=== PATIENT | female | born 1960 | race Caucasian/White ===

== ENCOUNTER 2020-04-19 08:14 | Outpatient (REF) | payer BC, SELFPAY ==
--- NOTE | 2020-04-19 15:03 | MHC.AU.P13 ---
Adult Audiological Evaluation Date of Visit: 04/19/20 Reason for Appointment: Audiological evaluation due to concern for decreased hearing in her left ear. Ms. Unger reports that she has tinnitus in the left ear as well, which she first noticed years ago. She denies any concerns for her right ear. 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 Medication List: Daily vitamin, Calcium + D3 2x daily D3-400iu Syed. 600 mg, ibuprofen and acetaminophen as needed. Otoscopy: Right Ear: Unremarkable Left Ear: Unremarkable Tympanometry: Tympanometry performed due to: Conductive component found in audiometric results Right Ear: Normal Middle Ear System (Type A) Left Ear: Normal Middle Ear System (Type A) Hearing Evaluation: Transducer(s) Used: Insert Earphones, Bone Conduction Method: Conventional Audiometry Stimuli Used: Pure Tones Right Ear: Description of Hearing: Normal hearing from 250-8000 Hz. Left Ear: Description of Hearing: Moderate conductive hearing loss from 250-1000 Hz, rising to a mild conductive hearing loss from 7958-8558 Hz. Speech Recognition Threshold (SRT): Method Used: Monitored Live Voice Stimuli Used: Spondee Words Right Ear: 10 dBHL Left Ear: 35 dBHL Word Discrimination: Method: Recorded Lists Word Lists Used: NU-6 Right Ear: 96% at 50 dBHL Left Ear: 96% at 75 dBHL Recommendations: Audiological re-evaluation in one year. Referral to Ear, Nose, and Throat is recommended. If hearing loss persists, recommend hearing aid use in the left ear. Diagnosis: Primary Diagnosis: H90.12 ConductiveHL, Unilateral Left Ear, W/Unrestricted Contralateral Services Performed: Services Performed: Comprehensive Audiological Evaluation (CPT 90376) Tympanometry (CPT 54806) Signature: Provider: Florencio Angel, CCC-A
== END 2020-04-19 08:15 | disposition home or self-care (01) ==
LOC: HO.SH 08:14
PROVIDERS: Visit Provider Pediatrics
DX: H90.2 Conductive hearing loss, unspecified (principal)
CPT/HCPCS: 92557; 92567

== ENCOUNTER → 2022-08-06 10:17 | Outpatient (BNVA) | payer BC, SELFPAY | PROVIDERS: Visit Provider Physician Assistant ==

== ENCOUNTER 2022-09-04 08:30 | Outpatient (REF) | payer BC, SELFPAY ==
[2022-09-04 11:20] LABS: MANUAL DIFF FLAG NO
[2022-09-04 11:23] LABS: Basophils Percent Auto 0.9 % (0-2); Eosinophils Absolute Auto 0.1 X10*3/uL (0.0-0.4); Eosinophils Percent Auto 1.9 % (0-4); Hematocrit 44.3 % (37.0-47.0); Hemoglobin 14.4 g/dl (12.0-16.0); Lymphocytes Absolute Auto 1.1 X10*3/uL (1.2-4.9); Mean Corpuscular HGB Conc 32.5 g/dl (31.0-35.0); Mean Corpuscular Hemoglobin 29.9 pg (27.0-33.0); Mean Corpuscular Volume 92.1 fL (80.0-98.0); Mean Platelet Volume 10.4 fL (9.4-12.3); Monocytes Absolute Auto 0.4 X10*3/uL (0.1-1.2); Monocytes Percent Auto 8.1 % (2-11); Neutrophils Absolute Auto 3.1 x10*3/uL (2.0-8.3); Neutrophils Percent Auto 65.1 % (45-73); Platelet Count 261 X10*3/uL (160-400); Red Blood Count 4.81 X10*6/uL (4.20-5.50); Red Cell Distribution Width 13.2 % (11.0-16.0); White Blood Count 4.7 X10*3/uL (4.8-10.8)
[2022-09-04 12:01] LABS: Erythrocyte Sedimentation Rate 18 MM/HR (0-20)
[2022-09-04 12:15] LABS: C Reactive Protein 0.25 mg/dL (< or = 0.50)
[2022-09-04 12:34] LABS: Thyroid Stimulating Hormone 0.97 uIU/mL (0.32-4.0)
== END 2022-09-04 08:31 | disposition home or self-care (01) ==
LOC: HO.WFDLDS 08:30
PROVIDERS: Visit Provider Physician Assistant
DX: K52.9 Noninfective gastroenteritis and colitis, unspecified (principal); R19.8 Other specified symptoms and signs involving the digestive system and abdomen
CPT/HCPCS: 36415; 84443; 85025; 85652; 86140

== ENCOUNTER 2022-09-10 09:28 | Outpatient (AMB) | payer BC, SELFPAY ==
--- NOTE | 2022-09-10 09:35 | MHC.OFFVIS ---
Intake Vital Signs 09/10/22 09:41 Height 5 ft 1 in Weight 137 lb BMI 25.9 BP 138/76 Blood Pressure Location Lt brachial Position Sitting Pulse 76 Intake Visit Reasons: discuss symptoms- Pt request Intake Note: Patient follow up Patient cc: some nauseas on and off, abdominal cramping come and go, and soft stool. Patient will discuss with provider her other symptoms. 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 Has taken Imodium in the past unsure of its benefit She admits that she is under a lot of stress- Began weight watchers Joined wt watchers-she is a very busy person- has her mthr in her home- who is ill- lives in her home [place]- in April- She has no fever, chills hematemesis or hematochezia Scheduled for 10/22/22- EGD/ colonoscopy , PFSH Surgical History History of breast lift History of endometrial ablation Hx of abdominoplasty Hx of colonoscopy Hx of foot surgery Hx of hysterectomy Hx of mammogram Family History Mother Breast CA Depression HTN (hypertension) Father Aortic dissection Family hx of prostate cancer Glaucoma HTN (hypertension) ETOH abuse Brother Family hx of prostate cancer HTN (hypertension) Seizure disorder Paternal Grandmother Breast CA Colon cancer Paternal Aunt Breast CA Social History Household Members: Spouse and Family Alcohol intake: current Patient Tobacco Use Status: Former Tobacco user Review of Systems Const All systems reviewed & are unremarkable except as noted in HPI and below Denies chills and Denies fever(s) Card Denies chest pain and Denies dyspnea Resp Denies dyspnea GI Denies hematochezia and Reports change in bowel habits Physical Exam Vital Signs: Last Vital Signs Pulse 76 09/10/22 09:41 BP 138/76 09/10/22 09:41 BMI result Body Mass Index 25.9 Const General: cooperative, healthy appearing, comfortable, no acute distress, anxious and well groomed Orientation/consciousness: patient oriented x3 Limitations: no limitations Resp Effort & Inspection: normal respiratory effort and able to speak in complete sentences Skin General skin exam: no rashes or lesions noted Neuro General: patient oriented x3 Extrem General: Yes full ROM Psych Appearance: grossly normal and well kempt Mental Status: mental status grossly normal Speech and movement: Normal speech and movement present Affect: Anxious affect present Attitude: cooperative Thought content: Normal thought content present Assessment & Plan Assessment & Plan (1) IBS (irritable bowel syndrome): Comment: Check celiac marker Code(s): K58.9 - Irritable bowel syndrome without diarrhea Plan: Trial dicyclomine 10 mg may increase to t.i.d. (2) Change in bowel function: Comment: Some improvement with increased Metamucil she will continue Code(s): R19.8 - Other specified symptoms and signs involving the digestive system and abdomen Plan: Continue Metamucil Plan Reassured Consider psychotherapy Dicyclomine 10 mg up to t.i.d. Follow through with EGD colonoscopy already scheduled Orders: Orders Endomysial IgA rflx Titer Today K58.9 - Irritable bowel syndrome without diarrhea, R19.8 - Other specified symptoms and signs involving the digestive system and abdomen Transglutaminase IgA Today R19.7 - Diarrhea, unspecified Medications: New dicyclomine 10 mg PO TID 90 caps 0RF Patient Instructions: 62-year-old somewhat anxious-female, follows up with a likely IBS Reviewed stressors, stress reduction may consider psychotherapy Follow through with EGD colonoscopy already scheduled She will give trial to dicyclomine Encouraged to call with any questions or concerns Appreciate the opportunity assist in care pleasant pt Coding Level of Care Code Est Pt Level 4 (37286) Diagnoses IBS (irritable bowel syndrome) K58.9 Change in bowel function R19.8 Time Spent (min) 35
[2022-09-10 09:41] VITALS: BP 138/76; PULSE 76; BMI 25.9
[2022-09-11 17:28] LABS: Transglutaminase IgA <1.0 U/mL
[2022-09-16 12:23] LABS: Endomysial IgA Antibody Negative (Negative)
== END 2022-09-10 10:36 | disposition home or self-care (01) ==
PROVIDERS: Visit Provider Physician Assistant
DX: K58.9 Irritable bowel syndrome, unspecified (principal); R19.8 Other specified symptoms and signs involving the digestive system and abdomen
CPT/HCPCS: 99214

== ENCOUNTER → 2022-09-10 09:28 | Outpatient (BNVA) | payer BC, SELFPAY | PROVIDERS: Visit Provider Physician Assistant | DX: K58.0 Irritable bowel syndrome with diarrhea (principal); R19.8 Other specified symptoms and signs involving the digestive system and abdomen | CPT/HCPCS: 36415 ==

== ENCOUNTER 2022-10-22 11:23 | Day surgery (SDC) | payer BC, SELFPAY ==
[2022-10-18 08:11] VITALS: BMI 27.1
--- NOTE | 2022-10-21 09:17 | HO.ANESPROP2 ---
Documented by User: Mamta Godfrey NP 10/21/22 09:18 HPI - Anesthesia Eval Consult details Narrative: 62yo F for Upper Endoscopy and Colonoscopy PMFSH Active Problems Active Problems: All Active Problems (Updated 10/18/22 @ 08:15 by Maura Gupta RN) IBS (irritable bowel syndrome) (Acute) Change in bowel function (Acute) Early satiety (Acute) Past Medical History Medical History Malignant hyperthermia Mixed stress and urge urinary incontinence History of headache Elevated blood pressure reading Cavernous malformation Cavernous hemangioma Family History Family History Mother Breast CA Depression HTN (hypertension) Father Aortic dissection Family hx of prostate cancer Glaucoma HTN (hypertension) ETOH abuse Brother Family hx of prostate cancer HTN (hypertension) Seizure disorder Paternal Grandmother Breast CA Colon cancer Paternal Aunt Breast CA Surgical History Surgical History Hx of abdominoplasty History of breast lift History of endometrial ablation Hx of foot surgery Hx of colonoscopy Hx of mammogram Social History Social History Household Members: Spouse and Family Alcohol intake: current Patient Tobacco Use Status: Former Tobacco user Quit Date: quit 41 yrs ago Use of substances other than those prescribed or required for medical reasons: No Are you DNR?: No Advance Directives: No Advance Directives Information Provided: Yes Patient : No (menopause) Meds Allergies Allergy/AdvReac Type Severity Reaction Status Date / Time No Known Allergies Allergy Verified 09/10/22 09:34 Home Medications Medication Instructions Recorded Confirmed Last Taken Type acetaminophen 500 mg capsule 500 mg PO Q6H PRN 07/30/22 Unknown History cholecalciferol (vitamin D3) 125 125 mcg PO DAILY 08/06/22 Unknown History mcg (5,000 unit) capsule ibuprofen 200 mg capsule 200 mg PO Q6H PRN 08/06/22 Unknown History levomefolate 500 mcg-niacinamide 1 tab PO DAILY 08/06/22 Unknown History 750 jz-fqdarz-Yb-selen-chrom tablet (Nicotinamide (with chromium)) Exam Exam Date and Time: October 21, 2022 0917 Height,Weight and Vital Signs: Height 5 ft 1.02 in Weight 65 kg Assessment and Plan Assessment Anesthesia Assessment: Chart Reviewed Documented by User: Tiffanie Gaona MD 10/22/22 12:20 PMFSH Active Problems Active Problems: All Active Problems (Updated 10/22/22 @11:57 by Tiffanie Gaona MD) IBS (irritable bowel syndrome) (Acute) Change in bowel function (Acute) Early satiety (Acute) Past Medical History Medical History Malignant hyperthermia Mixed stress and urge urinary incontinence History of headache Elevated blood pressure reading Cavernous malformation Cavernous hemangioma Family History Family History Mother Breast CA Depression HTN (hypertension) Father Aortic dissection Family hx of prostate cancer Glaucoma HTN (hypertension) ETOH abuse Brother Family hx of prostate cancer HTN (hypertension) Seizure disorder Paternal Grandmother Breast CA Colon cancer Paternal Aunt Breast CA Family history of problems with anesthesia: Yes (Malignant hyperthermia ) Surgical History Surgical History Hx of abdominoplasty History of breast lift History of endometrial ablation Hx of foot surgery Hx of colonoscopy Hx of mammogram Social History Social History Household Members: Spouse and Family Alcohol intake: current Patient Tobacco Use Status: Former Tobacco user Quit Date: quit 41 yrs ago Use of substances other than those prescribed or required for medical reasons: No Are you DNR?: No Advance Directives: No Advance Directives Information Provided: Yes Patient : No (menopause) Meds Allergies Allergy/AdvReac Type Severity Reaction Status Date / Time No Known Allergies Allergy Verified 09/10/22 09:34 Home Medications Medication Instructions Recorded Confirmed Last Taken Type acetaminophen 500 mg capsule 500 mg PO Q6H PRN 07/30/22 Unknown History cholecalciferol (vitamin D3) 125 125 mcg PO DAILY 08/06/22 Unknown History mcg (5,000 unit) capsule ibuprofen 200 mg capsule 200 mg PO Q6H PRN 08/06/22 Unknown History levomefolate 500 mcg-niacinamide 1 tab PO DAILY 08/06/22 Unknown History 750 uu-njijuq-Kx-selen-chrom tablet (Nicotinamide (with chromium)) Assessment and Plan Final Anesthetic Review Family History of Problems with Anesthesia: Yes (Malignant hyperthermia )
[2022-10-22 11:34] VITALS: BMI 25.7
[2022-10-22 11:54] VITALS: BP 167/87; PULSE 76; RESP 20; TEMP 35.8; O2SAT 97
[2022-10-22] MEDS: Lactated Ringers 1,000 ML 100 ML IVCONT (12:05)
--- NOTE | 2022-10-22 12:24 | MHC.SHP ---
Pre-Procedural Eval Section A Date of Service: 10/22/22 Section B Chief Complaint: Early satiety, Other specified symptoms and signs Details of Present Illness: grandmother had CRC Relevant Family History (Specify if Yes): Yes Relevant Social History: None Present Medications: see Short Stay Collaborative assessment Medical History: Significant History (Malignant hyperthermia Mixed stress and urge urinary incontinence History of headache Elevated blood pressure reading Cavernous malformation Cavernous hemangioma) History of Previous Operations: Relevant previous surgery/procedure and date(s) (History of breast lift History of endometrial ablation Hx of abdominoplasty Hx of colonoscopy Hx of foot surgery Hx of hysterectomy Hx of mammogram) Allergies: Allergies Allergy/AdvReac Type Severity Reaction Status Date / Time No Known Allergies Allergy Verified 09/10/22 09:34 Review of Systems Sugical H&P ROS: Negative: Constitution, Cardiovascular, Respiratory, Neurological, Psychiatric, Hem-Onc, Allergic/Immunologic, Gastrointestinal, Genitourinary, Musculoskeletal, Integumentary, Endocrine and Eyes/Ears/Nose/Throat Exam Surgical H&P Exam: Normal: HEENT, Normal: Heart, Normal: Lungs, Normal: Extremities, Normal: Abdomen, Normal: Skin and Normal: Neurological Plan Diagnosis/Plan: Unchanged I have reviewed the history and physical and performed a pertinent physical examination on my patient. No changes have occurred unless specified. Time Spent With Patient Time: Total time managing care of this patient today ____ minutes.
--- NOTE | 2022-10-22 13:16 | W.PM.OPN ---
Operative Note Operative Note Date of Service: 10/22/22 Narrative: Operative Information Procedure Description: EGD, Colonoscopy Indication: diarrhea Anesthesia: MAC FLEXIBLE TRANSORAL UPPER GASTROINTESTINAL ENDOSCOPY AND COLONOSCOPY PROCEDURE NOTE UPPER ENDOSCOPY Consent: Indications for the procedure and potential complications of bleeding, perforation, reaction to medications and missed diagnosis were discussed with the patient and informed consent was obtained. Instrument: Olympus GIF H 190 J mid size upper endoscope Monitoring: Vital signs and clinical assessment, continuous EKG monitoring, Pulse oximetry, Carbon Dioxide monitoring and blood pressure monitoring were done throughout the procedure. Procedure: The patient was placed in the left lateral decubitis position and pre-procedure medications were administered and a bite block was placed. The endoscope was inserted into the mouth and advanced under direct vision to the third part of duodenum. A careful inspection was made as the upper endoscope was withdrawn including a retroflexed examination of the proximal stomach; Findings and interventions are described below. Findings: Larynx:normal Esophagus: GE junction at 38 cm, diaphragm hiatus at 38 cm, bx taken from GEJ, Stomach: Mild erythema. Biopsies were obtained. Grade 2 flap valve on retroflexed examination of the cardia. Duodenum: Mild erythema -bx taken Intervention: Biopsies as noted above COLONOSCOPY Instrument: Olympus variable stiffness pediatric scope 190L Colonoscopy Monitoring: Vital signs and clinical assessment, continuous EKG monitoring, Pulse oximetry, Carbon Dioxide monitoring and blood pressure monitoring were done throughout the procedure. Colon withdrawal time was 9 minutes. Procedure: The patient was placed in the left lateral decubitis position and pre-procedure medications were administered. After a digital rectal examination of the ano-rectum, the video colonoscope was inserted into the rectum and advanced through the colon to the cecum/TI. The colonoscope was slowly withdrawn in a retrograde panoramic fashion and the colon mucosa was carefully examined including a retroflexed view of the rectum. Findings and interventions are described below. Procedure Difficulty: easy Findings: Terminal Ileum-normal, bx taken random colon bx taken Cecum:normal Ascending Colon: normal Transverse Colon -normal Descending Colon:normal Sigmoid Colon: normal Rectum: Retroflexion with small internal hemorrhoids, grade I, mild patchy erythema in rectum, bx taken Anorectum - normal Colon preparation: [place] Bowel Preparation Scale Right colon; 3 Transverse colon: 3 Left colon; 3 (0 = Unprepared colon segment with mucosa not seen due to solid stool that cannot be cleared. 1 = Portion of mucosa of the colon segment seen, but other areas of the colon segment not well seen due to staining, residual stool and/or opaque liquid. 2 = Minor amount of residual staining, small fragments of stool and/or opaque liquid, but mucosa of colon segment seen well. 3 = Entire mucosa of colon segment seen well with no residual staining, small fragments of stool or opaque liquid) Impression and Post Procedure Diagnosis: Endoscopy Findings: gastritis duodenitis Colonoscopy Findings: internal hemorrhoids Plan: Await Pathology results Repeat Colonoscopy in 10 years or earlier if clinically indicated High fiber diet leaflet avoid straining at stool, epsom salts and sitz bath, anusol supps or cream if bx neg can consider Cte or VCE Above findings were reviewed with the patient and relevant handouts were provided if indicated.
[2022-10-22 14:09] VITALS: BP 125/77; PULSE 87; RESP 16; TEMP 36.2; O2SAT 97
[2022-10-22 14:24] VITALS: BP 146/89; PULSE 73; RESP 16; O2SAT 97
--- NOTE | 2022-10-22 14:29 | HO.POSTANES ---
Post Anesthesia Evaluation Post Anesthesia Evaluation Date of Service: 10/22/22 Vital Signs: Vital Signs Temp Pulse Resp BP Pulse Ox O2 Del Method 10/22/22 14:24 73 16 146/89 H 97 Room Air 10/22/22 14:09 97.2 F 87 16 125/77 97 Room Air 10/22/22 11:54 96.5 F L 76 20 167/87 H 97 Room Air Anesthesia: Monitored Mental Status: Awake Pain Control: Satisfactory Nausea/Vomiting: None Hydration: Adequate Anesthesia-Related Issues: No Anes. Related Issues
[2022-10-22 14:40] VITALS: BP 185/108; PULSE 74; RESP 16; O2SAT 97
[2022-10-22] MEDS: fentaNYL citrate/PF 100 MCG/2 ML VIAL 25 MCG IVPUSH (14:48)
[2022-10-22 14:53] VITALS: BP 166/95; PULSE 81; RESP 16; O2SAT 97
[2022-10-22 15:00] VITALS: BP 166/98; PULSE 78; RESP 16; O2SAT 97
== END 2022-10-22 15:17 | disposition home or self-care (01) ==
PROVIDERS: PCP Internal Medicine; Visit Provider Internal Medicine Gastroenterology
PROC: (CPT 45380; principal; 2022-10-22 13:30)
DX: K64.0 First degree hemorrhoids (principal); K62.89 Other specified diseases of anus and rectum; K29.60 Other gastritis without bleeding; K29.80 Duodenitis without bleeding; R68.81 Early satiety; K58.9 Irritable bowel syndrome, unspecified; R19.8 Other specified symptoms and signs involving the digestive system and abdomen; Z87.891 Personal history of nicotine dependence; Z79.899 Other long term (current) drug therapy
CPT/HCPCS: 45380; 43239; 88305; 88342; J3010

== ENCOUNTER → 2022-10-22 11:23 | Outpatient (BNV) | payer BC, SELFPAY | PROVIDERS: PCP Internal Medicine; Visit Provider Internal Medicine Gastroenterology | DX: K52.9 Noninfective gastroenteritis and colitis, unspecified (principal); K29.90 Gastroduodenitis, unspecified, without bleeding; K63.89 Other specified diseases of intestine; K64.0 First degree hemorrhoids | CPT/HCPCS: 43239; 45380 ==

== ENCOUNTER 2022-11-05 08:52 | Outpatient (AMB) | payer BC, SELFPAY ==
--- NOTE | 2022-11-05 08:53 | A.OFFVIS_ITS ---
Intake Vital Signs 11/05/22 09:00 Height 5 ft 1 in Weight 138 lb BMI 26.1 BP 150/100 H Blood Pressure Location Lt brachial Position Sitting Pulse 70 Intake Visit Reasons: s/p egd/colon- Davis Intake Note: Patient follow up for EGD/Colonoscopy results. 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 by: Self / Same As Patient Allergies No Known Allergies Allergy (Verified 11/05/22 08:56) HPI HPI Comments History of Present Illness Details A 62 y/o female f/u after EGD and colonoscopy- she says she gets migraines She has loose stool- feels gassy-typically once a day- She has anxiety- BP elevated- Trying to get established with psychotherapist- Reviewed procedure report, pathology and recommendation No nausea, vomiting, hematemesis, hematochezia fever chills PFSH Medical History Malignant hyperthermia Mixed stress and urge urinary incontinence History of headache Elevated blood pressure reading Cavernous malformation Cavernous hemangioma Surgical History History of esophagogastroduodenoscopy (EGD) Hx of abdominoplasty History of breast lift History of endometrial ablation Hx of foot surgery Hx of colonoscopy Hx of mammogram Family History Mother Breast CA Depression HTN (hypertension) Father Aortic dissection Family hx of prostate cancer Glaucoma HTN (hypertension) ETOH abuse Brother Family hx of prostate cancer HTN (hypertension) Seizure disorder Paternal Grandmother Breast CA Colon cancer Paternal Aunt Breast CA Social History Household Members: Spouse and Family Alcohol intake: current Patient Tobacco Use Status: Former Tobacco user Quit Date: quit 41 yrs ago Review of Systems Const All systems reviewed & are unremarkable except as noted in HPI and below Card Denies chest pain and Denies dyspnea Resp Denies dyspnea GI Reports bloating and Reports loose stools Physical Exam Vital Signs: Last Vital Signs Pulse 70 11/05/22 09:00 BP 150/100 H 11/05/22 09:00 BMI result Body Mass Index 26.1 Const General: cooperative, healthy appearing, comfortable, no acute distress and anxious Orientation/consciousness: patient oriented x3 Limitations: no limitations Eyes Sclerae: sclerae normal Skin General skin exam: no rashes or lesions noted Neuro General: patient oriented x3 Extrem General: Yes full ROM Psych Appearance: grossly normal and well kempt Mental Status: mental status grossly normal Speech and movement: Normal speech and movement present and Clear speech present Affect: normal affect and Anxious affect present Attitude: cooperative Thought process: Normal thought process present Thought content: Normal thought content present Insight: Good insight present (Psych) Judgement: Good judgement present (Psych) Results Reviewed Results Reviewed: Impression and Post Procedure Diagnosis: Endoscopy Findings: gastritis duodenitis Colonoscopy Findings: internal hemorrhoids Plan: Await Pathology results Repeat Colonoscopy in 10 years or earlier if clinically indicated High fiber diet leaflet avoid straining at stool, epsom salts and sitz bath, anusol supps or cream if bx neg can consider Cte or VCE titi: Sindy Unger Age/Sex: 62/F Attending: Krystina Davis MD : 1960 Submitted by: Krystina Davis MD Copies to: Teodora Recio MD MR #: [id number] Status: [facility] Collected: 10/22/22 Location: [facility] Received: 10/22/22 Diagnosis A. Duodenum, biopsy: Duodenal mucosa with predominantly preserved villi and focal mild features of chronic/non-specific duodenitis. B. Stomach, biopsy: Gastric antral and body mucosa mild reactive changes, focal possible erosion and minimal chronic inactive gastritis; negative for H pylori, intestinal metaplasia and dysplasia. C. Gastroesophageal junction, biopsy: Squamous mucosa with spongiosis and intraepithelial neutrophils and eosinophils (up to 5 per high-power field) consistent with esophagitis, and columnar mucosa with moderate chronic active inflammation; negative for intestinal metaplasia and dysplasia. D. Terminal ileum, biopsy: Ileal mucosa with no specific change. E. Colon, random, biopsy: Colonic mucosa with no specific change; no evidence of microscopic colitis. F. Colon, rectum, biopsy: Colonic mucosa with lymphoid aggregates and no specific change; no active colitis/proctitis. Clinical History Pre-Op Dx: Abnormal bowel habits Post-Op Dx: Mild gastritis, duodenitis, internal hemorrhoids, mild proctitis Microscopic Description Microscopic sections reviewed. Immunostain for H. pylori on B is negative with appropriate control. Material Received A. Duodenum bx's B. Stomach bx's C. G-E junction bx's D. TI bx's E. Random colon bx's F. Rectal bx's Assessment & Plan Assessment & Plan (1) IBS (irritable bowel syndrome): Comment: Very pleasant 62-year-old female somewhat anxious, reassurance Lengthy ROS, plan of care, Reviewed procedure report, pathology and recommendation She is interested in psychotherapy she is trying to get a status Code(s): K58.9 - Irritable bowel syndrome without diarrhea Plan: Established with psychotherapists Stress reduction Plan Omeprazole 20 mg Stress reduction Medications: New omeprazole 20 mg PO DAILY 30 caps 5RF Patient Instructions: Reviewed procedure report, path and recommendation Reflux precautions reviewed Monitor stool Continue usual medication Stress reduction Call with questions and concerns Coding Level of Care Code Est Pt Level 3 (43559) Diagnoses IBS (irritable bowel syndrome) K58.9 Time Spent (min) 40
[2022-11-05 09:00] VITALS: BP 150/100; PULSE 70; BMI 26.1
== END 2022-11-05 09:44 | disposition home or self-care (01) ==
LOC: HO.HGIW 08:52
PROVIDERS: PCP Internal Medicine; Visit Provider Physician Assistant
DX: K58.9 Irritable bowel syndrome, unspecified (principal)
CPT/HCPCS: 99213

== ENCOUNTER → 2022-11-05 08:52 | Outpatient (BNVA) | payer BC, SELFPAY | PROVIDERS: PCP Internal Medicine; Visit Provider Physician Assistant ==

== ENCOUNTER 2023-01-07 12:41 | Outpatient (AMB) | payer BC, SELFPAY ==
--- NOTE | 2023-01-07 12:58 | MHC.OFFVIS ---
Intake Vital Signs 01/07/23 12:59 01/07/23 13:34 Height 5 ft 1 in Weight 138 lb BMI 26.1 BP 183/96 H 156/87 H Blood Pressure Location Lt brachial Lt brachial Position Sitting Sitting Pulse 75 Intake Visit Reasons: follow up Allergies No Known Allergies Allergy (Verified 11/05/22 08:56) HPI HPI Comments History of Present Illness Details A 62 y/o female -She has some good days - some bad days-She is anxious- she she does care for her mother which can be difficult at times which is understandable. She says she over indulged over the holiday, which she has taken notice. Dicyclomine 10 mg daily she has increased to b.i.d. and feels that there has been some improvement in her symptoms. Psycho therapy- 1st in person appointment is tomorrow- She otherwise no nausea, vomiting hematemesis, hematochezia fever chills PFSH Medical History Anxiety Malignant hyperthermia Mixed stress and urge urinary incontinence History of headache Elevated blood pressure reading Cavernous malformation Cavernous hemangioma Surgical History History of esophagogastroduodenoscopy (EGD) Hx of abdominoplasty History of breast lift History of endometrial ablation Hx of foot surgery Hx of colonoscopy Hx of mammogram Family History Mother Breast CA Depression HTN (hypertension) Father Aortic dissection Family hx of prostate cancer Glaucoma HTN (hypertension) ETOH abuse Brother Family hx of prostate cancer HTN (hypertension) Seizure disorder Paternal Grandmother Breast CA Colon cancer Paternal Aunt Breast CA Social History Household Members: Spouse and Family Alcohol intake: current Patient Tobacco Use Status: Former Tobacco user Quit Date: quit 41 yrs ago Review of Systems Const All systems reviewed & are unremarkable except as noted in HPI and below Card Denies chest pain and Denies dyspnea Resp Denies dyspnea GI Details: Bowel- alternate Denies hematochezia, Denies change in stool character, Denies nausea and Denies vomiting Psych Reports anxiety Physical Exam Vital Signs: Last Vital Signs Pulse 75 01/07/23 12:59 BP 156/87 H 01/07/23 13:34 BMI result Body Mass Index 26.1 Const General: cooperative, healthy appearing, comfortable, no acute distress and anxious Orientation/consciousness: patient oriented x3 Limitations: no limitations Eyes Sclerae: sclerae normal Resp Effort & Inspection: normal respiratory effort and able to speak in complete sentences Auscultation: clear to auscultation bilaterally, no rales, no rhonchi and no wheezes Cardio Rate: regular rate Rhythm: regular rhythm Heart sounds: S1 normal heart sound present and S2 normal heart sound present GI Palpation (GI): Soft to palpation and nontender Auscultation: normal bowel sounds Skin General skin exam: no rashes or lesions noted Neuro General: patient oriented x3 Extrem General: Yes full ROM Psych Appearance: grossly normal and well kempt Mental Status: mental status grossly normal Speech and movement: Normal speech and movement present and Clear speech present Affect: Anxious affect present Attitude: cooperative Thought process: Normal thought process present Thought content: Normal thought content present Assessment & Plan Assessment & Plan (1) IBS (irritable bowel syndrome): Comment: Very pleasant 62-year-old female somewhat anxious, reassurance Lengthy ROS, plan of care, Reviewed procedure report, pathology and recommendation She has been able to establish with a psychotherapist-she is happy about 1st in person meeting tomorrow Code(s): K58.9 - Irritable bowel syndrome without diarrhea Plan: Continue dicyclomine as need Psychotherapy- (2) Anxiety: Comment: She will likely benefit from psychotherapy-she is very optimistic- Code(s): F41.9 - Anxiety disorder, unspecified Plan Continue dicyclomine as need Psychotherapy Patient Instructions: Very pleasant, reassurance offered, receptive Continue self health Follow-up psychotherapy Dicyclomine p.r.n. Monitor symptoms Call with any questions or concerns Coding Level of Care Code Est Pt Level 4 (47793) Diagnoses IBS (irritable bowel syndrome) K58.9 Anxiety F41.9 Time Spent (min) 35
[2023-01-07 12:59] VITALS: BP 183/96; PULSE 75; BMI 26.1
[2023-01-07 13:34] VITALS: BP 156/87
== END 2023-01-07 13:42 | disposition home or self-care (01) ==
PROVIDERS: PCP Internal Medicine; Visit Provider Physician Assistant
DX: K58.9 Irritable bowel syndrome, unspecified (principal); F41.9 Anxiety disorder, unspecified
CPT/HCPCS: 99214

== ENCOUNTER → 2023-01-07 12:41 | Outpatient (BNVA) | payer BC, SELFPAY | PROVIDERS: PCP Internal Medicine; Visit Provider Physician Assistant ==

== ENCOUNTER 2023-07-09 08:54 | Outpatient (AMB) | payer BC, SELFPAY ==
--- NOTE | 2023-07-09 09:02 | A.OFFVIS_ITS ---
Vital Signs 07/09/23 09:03 Height 5 ft 1 in Weight 131 lb BMI 24.7 BP 151/80 H Blood Pressure Location Lt brachial Position Sitting Pulse 76 Intake Visit Reasons: 6 MNHT FOLLOW UP Intake Note: Patient follow up for IBS Patient cc: IBS symptoms. 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 Accompanied by: Self / Same As Patient Allergies No Known Allergies Allergy (Verified 07/09/23 09:08) Medication List - Last Reconciled 07/09/23 by Snow Hoyt PA-C acetaminophen 500 mg PO Q6H PRN cholecalciferol (vitamin D3) 125 mcg PO DAILY dicyclomine 10 mg PO TID ibuprofen 200 mg PO Q6H PRN [id number] 500 mcg- 750 mg (Nicotinamide (with chromium)) 1 tab PO DAILY HPI Comments Details: A pleasant 63-year-old female seen last in December with IBS, she was seeking out psychotherapy-she returns today for progress She saw psycho therapist about 8 or 9 times- given tools to work with-this is helps her manage 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[place]-- taking supplents- feeling better- following her plan when she makes dietary modifications- is helpful She has vague c/o-associates with stress level no nausea vomiting abdominal pain fever or chills PFSH Medical History Anxiety Malignant hyperthermia Mixed stress and urge urinary incontinence History of headache Elevated blood pressure reading Cavernous malformation Cavernous hemangioma Surgical History History of esophagogastroduodenoscopy (EGD) Hx of abdominoplasty History of breast lift History of endometrial ablation Hx of foot surgery Hx of colonoscopy Hx of mammogram Family History Mother Breast CA Depression HTN (hypertension) Father Aortic dissection Family hx of prostate cancer Glaucoma HTN (hypertension) ETOH abuse Brother Family hx of prostate cancer HTN (hypertension) Seizure disorder Paternal Grandmother Breast CA Colon cancer Paternal Aunt Breast CA Social History Household Members: Spouse and Family Alcohol intake: current Patient Tobacco Use Status: Former Tobacco user Quit Date: quit 41 yrs ago Review of Systems Const All systems reviewed & are unremarkable except as noted in HPI and below Physical Exam Vital Signs: Last Vital Signs Pulse 76 07/09/23 09:03 BP 151/80 H 07/09/23 09:03 BMI result Body Mass Index 24.7 Const General: cooperative, healthy appearing, comfortable, no acute distress and anxious Orientation/consciousness: patient oriented x3 Limitations: no limitations Resp Effort & Inspection: normal respiratory effort and able to speak in complete sentences Skin General skin exam: no rashes or lesions noted Neuro General: patient oriented x3 Extrem General: Yes full ROM Psych Appearance: grossly normal and well kempt Mental Status: mental status grossly normal Speech and movement: Normal speech and movement present and Clear speech present Affect: normal affect Attitude: cooperative Thought process: Normal thought process present Thought content: Normal thought content present Insight: Good insight present (Psych) Judgement: Good judgement present (Psych) Assessment & Plan Assessment & Plan (1) IBS (irritable bowel syndrome): Comment: Very pleasant 63year-old female somewhat anxious, reassurance She has been able to establish with a psychotherapist-beneficial Code(s): K58.9 - Irritable bowel syndrome without diarrhea Category: Medical Plan: Continue plan of care (2) Anxiety: Comment: benefit from psychotherapy-she is very optimistic- She seems to be managing very well- Code(s): F41.9 - Anxiety disorder, unspecified Category: Medical Plan: Continue plan of care Plan Continue plan of care Stress reduction, manage Psychotherapy as needed-certainly reach out with any concerns Dietary modifications Encouraged to call with any questions or concerns Patient Instructions: Continue plan of care-follow with nutrition Psychotherapy as needed Dietary modifications Encouraged to call questions or concerns Coding Level of Care Code Est Pt Level 3 (24497) Diagnoses IBS (irritable bowel syndrome) K58.9 Anxiety F41.9 Time Spent (min) 30
[2023-07-09 09:03] VITALS: BP 151/80; PULSE 76; BMI 24.7
== END 2023-07-09 10:15 | disposition home or self-care (01) ==
PROVIDERS: PCP Internal Medicine; Visit Provider Physician Assistant
DX: K58.9 Irritable bowel syndrome, unspecified (principal); F41.9 Anxiety disorder, unspecified
CPT/HCPCS: 99213

== ENCOUNTER → 2023-07-09 08:54 | Outpatient (BNVA) | payer BC, SELFPAY | PROVIDERS: PCP Internal Medicine; Visit Provider Physician Assistant ==